=== PATIENT | female | born 1965 | race Caucasian/White ===

== ENCOUNTER 2019-09-27 09:12 | Emergency (ER) | payer BC, SELFPAY ==
[2019-09-27 09:21] VITALS: BP 127/72; PULSE 83; RESP 16; TEMP 36.2; O2SAT 98; BMI 27.4
--- NOTE | 2019-09-27 09:22 | ED.HEATRA ---
HPI - Head Injury General Chief complaint: Head Injury Stated complaint: fell hit head in bathroom floor Time Seen by Provider: 09/27/19 09:19 Source: patient Mode of arrival: Ambulatory Limitations: no limitations History of Present Illness HPI Narrative: Patient is a 54-year-old female who presents after closed head injury. She sting at the [employer] [facility] tell. Last evening she got up to use the restroom she slipped on the carpet falling back hitting her head on the floor. No loss of consciousness no nausea vomiting numbness tingling or weakness. She did cut the back of her head bleeding controlled. She denies any neck pain. MD Complaint: head injury Onset (ago): hour(s) Mechanism of Injury: fall Place: other (Hotel) Loss of Consciousness: no Location of injury: occipital Related Data Allergies Allergy/AdvReac Type Severity Reaction Status Date / Time amoxicillin Allergy Verified 09/27/19 09:21 Review of Systems Review of Systems Narrative: GENERAL: Denies chills, fatigue, malaise, fever, sweats, travel HEENT: Denies sinus pain, ear pain, sore throat, difficulty swallowing, neck pain RESPIRATORY: Denies dyspnea, cough, wheezing, hemoptysis, sputum. CARDIOVASCULAR: Denies chest pain, palpitations, orthopnea, edema GASTROINTESTINAL: Denies nausea, vomiting, abdominal pain, diarrhea, constipation, melena. : Denies dysuria, frequency, incontinence, hematuria, urinary retention, flank pain. MUSCULOSKELETAL: Denies weakness, joint pain, or bony pain SKIN: A laceration posterior scalp NEUROLOGIC: + head injury no loss of consciousness see HPI Denies weakness, dizziness, headache, numbness, change in speech, confusion PSYCHIATRIC: No concerning psychosocial issues. 12 point review of systems is negative except for those stated above and HPI Patient History Medical History Hypertension (Acute) Social History Smoking Status: Never smoker Exam Initial Vital Signs Initial Vital Signs: Vital Signs Temperature 97.2 F L 09/27/19 09:21 Pulse Rate 83 09/27/19 09:21 Respiratory Rate 16 09/27/19 09:21 Blood Pressure 127/72 09/27/19 09:21 Pulse Oximetry 98 09/27/19 09:21 GENERAL: Well-appearing, well-nourished and in no acute distress. HEENT: Head atraumatic,EOMI, pupils reactive, face symmetric NECK: No vertebral tenderness no step-offs full flexion extension and rotation CARDIOVASCULAR: Regular rate and rhythm without murmurs, rubs or gallops. RESPIRATORY: Breath sounds equal bilaterally, no wheezes rales or rhonchi. BACK: No vertebral tenderness no step-offs no sign of trauma EXTREMITIES: Normal range of motion, no clubbing or edema. Neurovascularly intact NEUROLOGICAL: Alert and oriented x4.Normal gait and speech. Site Physician strength equal bilaterally SKIN: 2.5cm scalp laceration left parietal side Procedures Laceration Repair Laceration 1: Site: scalp Side (If applicable): left Size (cm): 2.5 Description: linear Depth: simple, single layer Pre-repair: wound explored Skin layer closed with: tracy Number of sutures: 2 Course Orders Ordered: Discontinued Medications Diphtheria/Tetanus/Acell Pertussis (Adacel) 0.5 ml IM .ONCE ONE Stop: 09/27/19 09:40 Last Admin: 09/27/19 09:51 Dose: 0.5 ml Documented by: [facility] [employer] Vital Signs Vital signs: Vital Signs - 8 hr 09/27/19 09:21 Temperature 97.2 F L Pulse Rate 83 Respiratory Rate 16 Blood Pressure 127/72 Pulse Oximetry 98 MDM - Head Injury MDM Narrative Medical decision making narrative: Patient has no sign of concussion she does have a mild headache but no nausea vomiting or weakness. She is not on any antiplatelet or anticoagulation medications. No indication for any further imaging. I discussed all findings with the patient and daughter, Education has been performed regarding treatment plan, diagnosis, warning signs and symptoms and all concerns have been addressed. Verbally agree with and understood all of the above. Discharge Plan Departure Patient Disposition: Home Clinical Impression: Laceration of scalp Qualifiers: Encounter type: initial encounter Qualified Code(s): S01.01XA - Laceration without foreign body of scalp, initial encounter Discharge Date/Time: 09/27/19 10:03 Activity Restrictions/Additional Instructions: *You have been diagnosed with scalp laceration *What to do: Have tracy removed in 5-7 days by her primary care provider, walk-in clinic or if needed go to the emergency department. No hair cuts but you may wash hair as normal. Expect to be sore for the next 1-2 days. *Continue to take medications as directed Mode Tylenol or ibuprofen as directed if needed for headache *Follow up with your primary care provider in 2-3 days *Return to ER if you should have persistent vomiting worsening headache weakness or any new, worsening or concerning symptoms
[2019-09-27] MEDS: TET,DIPH,PERTUSS(ACELL),VAC/PF 0.5 ML SYRINGE IM (09:51)
== END 2019-09-27 10:03 | disposition home or self-care (01) ==
PROVIDERS: Emergency Provider Emergency Medicine
DX: S01.01XA Laceration without foreign body of scalp, initial encounter (principal); W01.198A Fall on same level from slipping, tripping and stumbling with subsequent striking against other object, initial encounter; Z23 Encounter for immunization
CPT/HCPCS: 90471; 96372; 99281; 99283; 90715